=== PATIENT | female | born 1960 | race Caucasian/White ===

== ENCOUNTER → 2016-09-18 | Day surgery (SDC) | payer OTHER ==
[~2016-09-18] MED LIST: ALBU6.7H INH; BUTA1CAP PO; BUTACAP2 PO; CHOL20005 PO; CITRTAB7 PO; D32000CA PO; GLUCTAB PO; LACTATED RINGER'S 1000 ML INJ 1,000 ML ONE; METF-324 PO; METF-382 PO; PRESCAP5 PO; PROPOFOL 500 MG/50 ML BTL IV ONE; VENTAER INH
== END | disposition home or self-care (01) ==
LOC: ESDC 07:33
PROVIDERS: ATTEND Internal Medicine Gastroenterology
DX: Z86.010 Personal history of colon polyps (principal)
CPT/HCPCS: 00810; 45378; J7120